=== PATIENT | female | born 1960 | race African-American/Black ===

== ENCOUNTER → 2017-02-26 | Outpatient (CLI) | payer OTHER ==
[~2017-02-26] MED LIST: NAPROSYN500 MG PO; ROBAXIN500 MG PO
--- NOTE | ~2017-02-26 | CR181 ---
[facility] A Service of [facility] RADIOLOGY TEXT RESULTS PATIENT: JOSH MICHAEL LOCATION: [facility] : 60 UNIT #: [id number] AGE: [address]: RENÉ COBB SEX: F ORDER DR: [id number] [facility] [address] [place], [place] [address] [id number] O MR#: [id number] #: [id number] NAME: JOSH MICHAEL : 1960 SEX: F STUDY DATE/TIME: 02/26/2017 11:11 UNIT: [facility] ROOM: STUDY DESCRIPTION: CR Lumbar Spine 2 or 3 Views Attending Physician: Arya Larson Referring Physician: Arya Larson Ordering Physician: Arya Larson Primary Care Physician: Shweta Parikh M.D. MEDICAL IMAGING REPORT This report is preliminary unless electronic signature is present EXAM Lumbar spine series, 3 views HISTORY Low back pain with numbness and shooting pain and burning going through both legs for 10 years. No known injury. TECHNIQUE AP, lateral and lumbosacral views of the lumbar spine are reviewed. COMPARISON STUDIES Comparison films from 2004. FINDINGS There is grade 1 anterolisthesis L4 on L5 by about 6-7 mm and secondary to severe facet arthritis. Severe facet arthritis at L3-L4, L4-L5 and L5-S1 levels. Anterior endplate spondylosis is most apparent at the L3-L4 level. Probably loss of intervertebral disc height at each of these levels but not well evaluated due to the positioning on the lateral views. There is levoconvex lumbar scoliosis. The anterolisthesis of L4 on L5 is progressed from previous. The levoconvex scoliosis is progressed from previous and the degenerative change is worse. IMPRESSION 1. Interval worsening in lumbar degenerative disease since 2003 with worsening grade 1 anterolisthesis of L4 on L5 secondary to severe facet arthritis. If more information is needed and the patient is a candidate, findings best pursued with a MRI lumbar spine. Dictated by... Leti Stein M.D. [facility] A Service of [facility] RADIOLOGY TEXT RESULTS PATIENT: JOSH MICHAEL LOCATION: [facility] : 60 UNIT #: [id number] AGE: [address]: RENÉ COBB SEX: F ORDER DR: THIS IS AN ELECTRONICALLY VERIFIED REPORT Leti Stein M.D. at 03/01/2017 1:56 PM SAC/pcl TD: 02/26/2017 22:40 JOB #: [id number] MEDICAL IMAGING REPORT Page 1 of 1 COPY
== END | disposition home or self-care (01) ==
LOC: CRAD 10:52
DX: M54.5 Low back pain (principal); M51.36 Other intervertebral disc degeneration, lumbar region; M43.16 Spondylolisthesis, lumbar region; M46.96 Unspecified inflammatory spondylopathy, lumbar region
CPT/HCPCS: 72100